=== PATIENT | female | born 1995 | race Caucasian/White ===

== ENCOUNTER → 2019-04-07 14:44 | Outpatient (CLI) | payer MEDICAID, SELFPAY ==
[2019-04-07 17:20] LABS: Hematocrit 34.8 % (37-47); Hemoglobin 11.8 g/dL (12.0-15.0); Mean Corp Hgb Conc 33.9 g/dL (32-36); Mean Corpuscular Hgb 32.5 pg (27.0-32.0); Mean Corpuscular Volume 95.9 fL (81-99); Mean Platelet Vol. 9.4 fl (6.2-12.0); Platelet Count 291 K/mm3 (150-450); RBC Distribution Width CV 12.5 % (11.6-14.6); RBC Distribution Width SD 43.8 fl (35.1-43.9); Red Blood Count 3.63 M/mm3 (4.2-5.4); White Blood Count 8.4 K/mm3 (4.4-11.0)
[2019-04-07 17:25] LABS: Glucose Challenge Gest 1H 50g 112 mg/dL (70-140)
== END ==
PROVIDERS: Visit Provider Advanced Practice Midwife
DX: Z34.83 Encounter for supervision of other normal pregnancy, third trimester (principal)
CPT/HCPCS: 36415; 82950; 85027; 86900; 86901

== ENCOUNTER → 2019-05-26 | Outpatient (CLI) | payer MEDICAID, SELFPAY | END | disposition home or self-care (01) | LOC: LABSPEC 17:00 | PROVIDERS: Visit Provider Obstetrics & Gynecology | DX: Z36.85 Encounter for antenatal screening for Streptococcus B (principal) | CPT/HCPCS: 87081 ==

== ENCOUNTER 2019-05-30 23:53 | Outpatient (CLI) | payer MEDICAID, SELFPAY ==
[2019-05-31 00:21] VITALS: BP 133/85; PULSE 88; TEMP 98.1; O2SAT 97
[2019-05-31 00:22] VITALS: TEMP 98.1; O2SAT 97
[2019-05-31 00:30] VITALS: BMI 37.0
--- NOTE | 2019-05-31 08:44 | OB.TRI.NOTE ---
- Problem List (1) 37 weeks gestation of Status: Acute (2) Decreased movement Status: Acute Qualifiers: Fetus number: single or unspecified fetus Trimester: third trimester Qualified Code(s): O36.8130 - Decreased movements, third trimester, not applicable or unspecified History of Present Illness Date of Service: 05/30/19 Was patient seen by the physician?: No Reason For Visit: DFM Date of Service: 05/30/19 Final LAURENCE: 06/20/19 Final LAURENCE Source: US <20 weeks Gestational age: 37 Weeks and 1 Days History of Present Illness: Reports decreased FM today and dizziness. Allergies No Known Allergies Allergy (Verified 05/31/19 00:30) Review of Systems Constitutional: Denies: Chills, Fever, Weight Change HEENT: Denies: Head Aches, Sinus Congestion, Sinus Drainage Cardiovascular: Denies: Chest Pain, Palpitations Respiratory: Denies: Cough, Shortness of breath at rest, Sputum production Gastrointestinal: Denies: Abdominal Pain, Nausea, Vomiting Genitourinary: Denies: Dysuria Musculoskeletal: Denies: Joint Pain, Joint Tenderness Skin: Denies: Rash, Wounds Neurological: Denies: Numbness, Tingling, Focal weakness Psychiatric: Denies: Anxiety, Depression, Homicidal Ideations, Suicidal Ideations Hematologic/ Lymphatic: Denies: Easy Bruising, Easy Bleeding Physical Exam Vitals: VSS General: Alert, Oriented x3, No apparent distress HEENT: Atraumatic, Normocephalic. Negative for: Thyromegaly, Lymphadenopathy Cardiovascular: Regular rate, Regular Rhythm Lungs: Clear to auscultation Abdomen: Bowel Sounds Present, Gravid Neurological: Deep Tendon Reflexes 2+/4 and Symmetrical, Neuro grossly intact RETAIL PROJECT MERCHANDISER: Normal external genitalia. Negative for: Vulvar lesions NST - FHR Rate Baby A Baseline: 130 Variability:: Moderate Accelerations:: 15 x 15 Decelerations:: None NST Reactive:: Yes FHR Category:: Category I Uterine Activity:: irritability Impression/Plan A: at 37 weeks gestation with decreased FM and dizziness at home Reports no longer dizzy and good movement with rest and hydration NST Category 1 with FHR baseline 130, +accels, -decels, moderate variability P: Discharge home. To do BID FM counts at home and call if decreased Educated on importance of hydration and rest To call the office or triage call with decreased movement or increased dizziness
[2019-05-31 11:54] VITALS: BP 122/69; PULSE 106
== END 2019-05-31 00:50 | disposition home or self-care (01) ==
LOC: WPOUT 05-31 → OBT 05-31
PROVIDERS: Visit Provider Obstetrics & Gynecology
DX: O36.8130 Decreased fetal movements, third trimester, not applicable or unspecified (principal); Z3A.37 37 weeks gestation of pregnancy
CPT/HCPCS: 59025; 59050; 99218; G0378

== ENCOUNTER 2019-06-06 07:45 | Inpatient (IN) | payer MEDICAID, SELFPAY ==
[2019-06-06] VITALS (34 sets, daily range): BP systolic 110–192; BP diastolic 53–126; PULSE 8–130; RESP 16–18; TEMP 36.2–37.2; O2SAT 83–100; BMI 38.0
[2019-06-06] MEDS: Lactated Ringers 1,000 ML 50 ML IV (07:55)
[2019-06-06] MEDS: Lactated Ringers 500 ML 999 ML IV (08:00)
--- NOTE | 2019-06-06 08:00 | HP.PCM_ITS ---
History and Physical Date of Admission: 06/06/19 ACOG ANTEPARTUM RECORD - HISTORY AND PHYSICAL (06/06/2019) Name: RIANA NGUYỄN History of This : This is a 24-year-old 2 para 1 who presents to labor and delivery in active labor. 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 She also has a bipolar disorder and takes Prozac. OB Physician: LIUDMILA 's Physician: MIGDALIA VASCULAR PHYSICIAN ...................................................................... : 1995 Age: 24 Address: [address] [place] [address] Phone: H) [phone] Insurance Carrier: [email or web address] CLAIM[facility] DEPT [id number] Emergency Contact: JULIANA YI [phone] ...................................................................... Final LAURENCE: 06/20/19 By Ultrasound: 22 weeks, [place] PARITY: (G-Total Pregnancies P-Fullterm,Premature,Induced AB,Spont AB, Ectopics, Multiple,Living) LAURENCE CONFIRMATION: By LMP: 09/13/18 Final LAURENCE: 06/20/19 OB PROBLEM LIST: Bipolar disroder, takes Prozac, had been on mood stablizer. PHQ-9 = 6 Born with Pyloric Stenosis, Pylorectomy as an infant CF testing declined Lives at least 30 minutes from [place] Marginal previa resolved. New FOB (he has no other children) No FOB involvment, she knows none of his family medical hx Office class encouraged Pt has no recall of Quad Screen being drawn, [facility]Y Culp records show is was drawn on 01/07/19; no results noted. ALLERGIES: No Known Drug Allergies MEDICATIONS: + DHA 28 mg iron- 975 mcg-200 mg combo pack PO QD Prozac 20 mg capsule PO QD SOCIAL HISTORY: Smoking - used to smoke but quit Alcohol Use - denies drinking Diet - HIgh fast food right now Lifestyle - moderate stress lifestyle and single Exercise - minimal Employer - [employer] Job Description - Machine [employer] Illicit Drug Use - denies use of street drugs Sexual Activity - Not currently sexually active Residence - rents an apartment Place of - [place], [place] Hours Worked - 35 HRS Children Name(s) - Radha PRIOR DELIVERY HISTORY _ DEL DATE GEST LAB WT LB WT OZ TYPE ANES LABOR TX 19 Mar 13 40 18 7 12 Vag Epidural No ANTEPARTUM FLOW CHART VISIT GE RTC FU F F HI U U DATE WK MD WKS HT PN HR M SS BP ED WT HI GL D EF ST __ ____ ___ __ __ ___ __ __ __ ___ __ __ __ ___ __ 04 May 37 CH 1 37 V + + 120/78 sl 243 1+ 50 -3 May 36 CH 1 36 V + + 130/72 sl 243 tr - 1+ 50 -3 May 35 CH 1 36 V + ++ 130/70 0 244 tr ne 06 May 33 CH 2 34 V + ++ 122/62 0 242 ne ne Apr 30 KW 2 31 on + 104/74 sl 240 08 Apr 28 2 29 + + 120/72 0 238 - - ANTEPARTUM NOTE(S): Jun 02 2019: see note May 26 2019: still having diarrhea. GBS and Larc today. May 19 2019: May 06 2019: christian mayers otherwise good Apr 22 2019: nausea on and off. Apr 07 2019: NOB transfer. COMPREHENSIVE ANTEPARTUM NOTE(S): Jun 02 2019: H taken to OB. tkg Jun 02 2019: Riana is being seen for PNV. Pt is feeling well. She is anxious due to dec fm the other night and came into [facility] L and D. She states she also was seeing spots and was feeling lightheaded. AM Jun 02 2019: FM+. FHR. Anxious. SVE today /-3. Understands to increase rest and fluids for dizziness. If decreased FM to rest on left side, ice water, count 4 movements in 1 hour or 10 in 2. To return in 1 week. If decreaesed FM to call during the office for NST or go to WP. To return in 1 week and will schedule elective IOL after 39 wks - CH May 30 2019: GBS negative - CH May 26 2019: (m,m*) Here today for routine PNV. +FM. FHR 148. GBS swab collected today, will review at next visit. Wishes to have SVE today 1.5/-3. Is thinking about IOL at 39 weeks for epidural and distance from hospital. FOB is not involved and still plans to have cousin and possible sister with her for labor support and epidural planned. Will return in 1 week and membrane sweeping after 38 weeks discussed. To call with decreased FM, ROM, bleeding, or regular UC q7-10 minutes apart since distance from hosp. - May 19 2019: (m,m*) Reports +FM. FHR. Will start weekly visits and educated on GBS swab and collection at next visit. May also start SVE next visit. To pre-register today. Christian mayers, but nothing regular. Will go away with rest and hydration. Working a lot, but plans to work up until due date. Reviewed to call with regular UC, decreased FM, bleeding or ROM. To return in 1 week. - May 06 2019: (m,m*) Routine PNV. Reports +FM. FHR 130. Feeling well. Discussed if decreased FM to lay down on left side and drink ice water. To pay attention to movements. Wanting 4 in 1 hour or 10 in 2 hours. States she hasn't ever been to [facility] and wanted to know options for labor. Wants an epidural radha ntually, but wants to use water for pain management. Discussed calling over to get a tour scheduled and that all rooms have showers in them with only two rooms having tubs. Labor tubs, but may not deliver in them and they're generally given to women who are going more natural unless both are available. Had to push on her back with her 5 year old son and feels traumatized from the experience. Wants to know about different positions. Discussed side lying with peanut ball use and hands and knees are helpful even with epidural in place. Feels a lot better and reassured. Reports hx of anixety and Fluoxetine is helping, but not controlling it. She wants to have full control and with having a baby there is a loss of the control she desires. Reassured that she will be the decision maker and we will support her with all her choices. To return in 2 weeks for routine PNV. 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; lots of round ligament pain, support belt helps at work; difficulty sleeping rt this discomfort, sleep hygeine measures discussed, also recommended warm bath/shower, Tylenol, hot water bottle, Unisom; reports cramping and diarrhea once weekly for past 3 weeks, doesn't drink a lot of water; recommended increased fluids, fiber supplement, increased dietary fiber, may use Immodium x 1 dose if especially problematic; will continue to follow and get GI or PCP consult if needed; concerned re: when to start vag exams, she did not get to hospital in time for epidural with first , an delivered quickly, found this tramautic; discussed option for IOL at 39 weeks and calling when UCs 10 minutes apart otherwise; reports active FM; denies UCs, VB, LOF; US today shows PHOEBE low normal, marginal previa resolved; discussed warning signs, s/s PTL; RTO 2 weeks for PNV w/CH- KVW Apr 08 2019: O positive Cultures negative Apr 07 2019: Riana is here for her NOB transfer visit at 29 w 3 d, she is a with an LAURENCE of 06/20/2019. She states early care at [facility] in [place], [place], then 3 visits with [facility]. Triage phoned [facility] for labs/records. Office practice patterns discussed, and educational materials provided. Riana has a 5 year old son at home, who was born by at [facility]. Past history updated. Delivery at [facility] is planned, with an epidural, and she wants to breastfeed. She states that she nursed her son for one week, then started formula. Discussed and encouraged office class, she states that she may take this class. Also given information about registering for [facility] group tour; she is very interested in a tour. Riana resides with her son in [place], having recently moved form the [facility]. She states that there is a new FOB for current , but he does not know about the , and will not be involved. She shares that her son's FOB is not involved either. Riana states that she receives good family support form her dad and step mother. As she did not have 1 hr GTT or other 28 week labs drawn, will have 1 hr GTT, CBC, and Type + Screen today, and she is in full agreement with this. Emergencies/danger signs to report, round ligament pain, how to contact the office during and after hours, reporting a suspected UTI, and common OTC medications approved/not approved for use during reviewed. She takes a prescribed vitamin and tolerates this well. She repots first trimester N/V, and that over the last few days she has been vomiting more; states I think I have some kind of virus. Encouraged small frequent, balanced, and for now bland meals with protein included throughout the day and adequate water hydration of at least one gallon per 24 hours. Riana reports that she quit smoking in early 2018, and denies use of drugs or ETOH. Genetic Screening form completed, she had Pyloric Stenosis at and had a P ylorectomy, and she has no knowledge FOB's family history, she states that she knows that he has no other children; she takes Prozac for Depressive Bipolar Disorder. Her past records show that she had a Quad Screen drawn on 01/07/19, no results noted. Riana states that she does not recall Quad Screen. Too late for MSAFP, and CF testing declined; consent signed as such. PHQ-9 = 6 today; Riana states that she sees a counselor and this helps, along with medication. She reports that she had been taking mood stabilizers for her Bipolar disorder, but has not taken these in some time. She states that she was treated for Chlamydia and bacterial vaginosis prior to . exercise recommendations, lifting restrictions, and Kegel exercises reviewed. Water and dietary needs reinforced, including caloric needs, recommended weight gain, limiting empty calories, and limiting caffeien to one cup a day. Printed guide for food safety during provided with review. Riana states that she understands all information provided during 90 minute NOB visit, and has no questions following same. AW Apr 07 2019: NOB, first PNV with this practice; records available for review; possible marginal placenta per US w/previous practrice will repeat US at next PNV: desires CNM care; No partner involvement, FOB unaware of per pt decision r/t his alleged drug abuse; pt lives alone, but has good family support from nearby family and will be accompanied in labor by a friend; gtt, T and cbc dsrawn today; fPQH-9 score of 6 r/t previously diagnosed bipolar disorder with mostly depression s/s; pt denies thoughs of hurting self and others and feels is coping wel on current dose of Prozac; feeling generally well; reports active FM; denies UCs, VB, LOF; discussed warning signs, s/s Labor; RTO 1 week for PNV - KVW REVIEW OF SYSTEMS: GENERAL - Denies fever, or chills SKIN - Denies rash, new skin lesions, or change in moles EYES - Denies blurred vision, or change in visual acuity EARS - Denies ear pain, or difficulty hearing NOSE - Denies nasal congestion, discharge, or bleeding MOUTH - Denies sore throat, or difficulty swallowing NECK - Denies pain or swelling RESPIRATORY - Denies shortness of breath, cough, wheezing CARDIOVASCULAR - Denies palpitations, chest pain, orthopnea, PND, peripheral edema, syncope or claudication GASTROINTESTINAL - Denies nausea, vomiting, diarrhea, constipation, Denies abdominal pain, melena and or bright red blood GENITOURINARY - Denies dysuria, frequency of urination, urgency, or hesitancy MUSCULOSKELETAL - Denies joint or muscle pain, or back pain NEUROLOGICAL - Denies localized numbness, weakness, or tingling PSYCHIATRIC - Denies depression, anxiety, substance abuse or suicide attempts ENDOCRINE - Denies heat or cold intolerance, weight loss or gain, increasing thirst HEMATO-IMMUNOLOGIC - Denies easy bruising, bleeding, oral ulcerations or recurrent infections GENETICS SCREENING: Age 35+ years: No Thalassemia: No Neural Tube Defect: No Down Syndrome: No PATRIC-SACHS: No Sickle Cell Disease: No Hemophilia: No Musc. Dystrophy: No Cystic Fibrosis: No-declines screening [place] Chorea: No Mental Retardation: No Fragile X: No Other genetic: No Other defects: No SABs/still births: No Drugs since LMP: No INFECTION HISTORY: High risk AIDS: No High risk Hepatitis: No Exposed to TB: No Exposed to Herpes: No Rash/viral illness since LMP: No History of STD: No Comments: Bacterial vaginosis, chlamydia MENSTRUAL HISTORY: *Menses Amount/Duration: 5 daysMenses Regularity: IrregularFrequency: variableBCP's at Conception: NoMenarche (Age Onset): 13* PAST SUMMARY: PARITY: 1. Total Pregnancies............ 2 2. Full Term Pregnancies........ 1 3. Premature.................... 0 4. Abortions - Induced.......... 0 5. Abortions - Spontaneous...... 0 6. Ectopics..................... 0 7. Multiple Births.............. 0 8. Living Children.............. 1 PAST #1: Date of :.................. 03[birth year]18[birth year] Gestation Weeks:................ 40 Length of labor(hours):......... 18 Sex:............................ M Weight-lbs:............... 7 Weight-oz:................ 12 Type of Delivery:............... Vag Type of Anesthesia:............. Epidural Place of Delivery:.............. [place] Treatment of Labor?:.... No Comment: PHYSICAL EXAMINATION General Appearence: 24 yo female in no acute distress Vital Signs: AF, VSS Heart: RRR without rubs or gallops Lungs: CTA x 2 Breasts: deferred Abdomen: gravid Pelvis: Cervix: 6 cm / 90% Presentation: cephalic Station: -2 Fetus: Size: AGA Movement: present Heart: present Labs for : RIANA NGUYỄN since 09/23/2018 ORDER DATEIN DESCRIPTION VALUE UNITS RANGE A+ COMMENT CULTURE, GROUP B STREPTOCOCCUS 05/26/19 NOTE Original Ordering Provider: SIMRAN Cruz Comments: VAGINAL/RECTAL ZO Culture Group B Beta Streptococcus is not isolated. Reviewed by LIUDMILA ABO RH BLOOD TYPE, PATIENT 04/07/19 [facility]~[address] [place], [address]~ BLOOD TYPE GEL O POSITIVE N Reviewed by LIUDMILA GLUCOSE CHALLENGE GEST 1H 50G 04/07/19 NOTE Original Ordering Provider: SIMRAN Schmidt GLU GEST 50G 1H 112 mg/dL 70-140 Reviewed by LIUDMILA CBC-COMPLETE BLOOD CNT NO DIFF 04/07/19 NOTE Original Ordering Provider: SIMRAN Schmidt WBC 8.4 K/mm3 4.4-11.0 RBC 3.63 M/mm3 4.2-5.4 L HGB 11.8 g/dL 12.0-15.0 L HCT 34.8 % 37-47 L MCV 95.9 fL 81-99 MCH 32.5 pg 27.0-32.0 H MCHC 33.9 g/dL 32-36 RDW CV 12.5 % 11.6-14.6 RDW SD 43.8 fl 35.1-43.9 PLT 291 K/mm3 150-450 MPV 9.4 fl 6.2-12.0 Reviewed by LIUDMILA Initial OB Labs 11/18/18 Blood Type O Rh Type POSITIVE Antibody Screen NEG Negative Hemoglobin Initial OB 12 Hematocrit Initial OB 34.4 w PLT 292 Rubella IMMUNE Immune VDRL NON-REACTIVE Non Reactive HBsAg NEGATIVE Negative HIV Test NEG Negative Urine Protein NEG Negative Urine Glucose NEG Negative Reviewed by ALBINA GC-Chlamydia 11/18/18 Chlamydia NEG Negative GC NEG No Growth Reviewed by ALBINA PAP Smear 11/18/18 PAP Test NEG Normal Reviewed by ALBINA Impression /Plan: 38+ week intrauterine in active labor with rupture of membranes. Preparations in progress for delivery.
[2019-06-06 08:12] LABS: Absolute Lymphocyte Count 2.92 X10^3/uL (0.83-4.51); Absolute Neutrophil Count 6.6 X10^3/uL (2.0-7.7); Basophil# 0.02 X10^3/uL; Basophil% 0.2 % (0-1); Eosinophil# 0.08 X10^3/uL; Eosinophils% 0.8 % (0-5); Hematocrit 34.6 % (37-47); Hemoglobin 11.9 g/dL (12.0-15.0); Lymphocyte # 2.92 X10^3/ul (4.0); Lymphocyte % 27.9 % (19-41); Mean Corp Hgb Conc 34.4 g/dL (32-36); Mean Corpuscular Hgb 32.6 pg (27.0-32.0); Mean Corpuscular Volume 94.8 fL (81-99); Mean Platelet Vol. 9.6 fl (6.2-12.0); Monocyte% 7.7 % (0-10); NRBC Flagged by Analyzer 0 % (0-5); Neutrophil # 6.58 X10^3/uL (2.7-7.7); Neutrophil % 62.9 % (47-70); Platelet Count 227 K/mm3 (150-450); RBC Distribution Width CV 12.6 % (11.6-14.6); RBC Distribution Width SD 43.8 fl (35.1-43.9); Red Blood Count 3.65 M/mm3 (4.2-5.4); White Blood Count 10.5 K/mm3 (4.4-11.0)
[2019-06-06] MEDS: fentaNYL-bupivacaine (epidural) 100 ML BAG EPIDURAL (09:30)
[2019-06-06] MEDS: Oxytocin 30 units/NS 500 ml 30 UNITS/500 ML IV.SOLN 334 UNITS IV (09:48)
--- NOTE | 2019-06-06 09:56 | PCM.OPRPT ---
Vaginal Delivery Maternal Presentation: Active Labor, Spontaneous Rupture of Membranes Amniotic Membrane Rupture Type: Spontaneous at home Amniotic Fluid Description: Clear Final LAURENCE: 06/20/19 Final LAURENCE Source: US <20 weeks Gestational age: 38 Weeks and 0 Days doctor who attended delivery (if requested by OB): Natalie Antony Date of Procedure: 06/06/19 Pre-Operative Diagnosis: IUP Post-Operative Diagnosis: IUP Surgery/ Procedure Performed: Spontaneous Vaginal Delivery Anesthesiologist: Po Mckeon Type of Anesthesia: Epidural Description of Procedure: Spontaneous vaginal delivery of a viable male with Apgars of 7/8 from an occiput anterior presentation with clear amniotic fluid and normal three-vessel placenta. No episiotomy. First-degree midline laceration repaired with 3-0 Rapide suture under epidural. Sponges okay. Delivery physician: Chilango Noel MD. Presentation: Vertex Placental Delivery Description: Spontaneous Placenta Disposition: [facility] Cord Vessel Description: 3 Vessels Cord Entanglement: None Estimated Blood Loss: 250 cc A gender: Male (1 minute): 7 (5 minute): 8 Episiotomy Description: None Laceration: Midline, 1st degree Medications given after delivery: IV Pitocin Complications: None
[2019-06-06] MEDS: FLUoxetine 20 MG Capsule 40 MG PO (12:04)
[2019-06-06] MEDS: Ibuprofen 600 MG Tablet PO ×2 (12:06→18:32)
[2019-06-07] MEDS: Senna/Docusate Sodium 1 Tablet PO (01:22)
[2019-06-07 04:13] VITALS: BP 121/69; PULSE 87; RESP 16; TEMP 36.6
[2019-06-07] MEDS: Acetaminophen 500 MG Tablet 1000 MG PO ×2 (05:00→19:54)
[2019-06-07 08:00] VITALS: BP 125/59; PULSE 81; RESP 14; TEMP 36.4
[2019-06-07 08:18] VITALS: BP 125/59
[2019-06-07] MEDS: FLUoxetine 20 MG Capsule 40 MG PO (08:25)
--- NOTE | 2019-06-07 10:04 | PCM.PN.OB ---
Subjective: Patient without complaints. Still working on breast-feeding. Minimal vaginal bleeding. Considering going home later today. - Physical Exam Vitals/I&O's: Vital Signs Temp Pulse Resp BP Pulse Ox 97.6 F L 81 14 125/59 H 97 06/07/19 08:00 06/07/19 08:00 06/07/19 08:00 06/07/19 08:18 06/06/19 14:49 Oxygen Delivery Method Room Air Weight: 243 lb Body Mass Index (BMI) 38.0 Intake and Output for Last 24 Hours 06/05/19 06/06/19 06/07/19 22:59 23:59 23:59 Intake Total Output Total Balance Laboratory Results 06/06/19 07:55: Blood Type O POSITIVE, Antibody Screen NEGATIVE Current Medications Acetaminophen (Tylenol) 1,000 mg PO Q8H PRN PRN PRN Reason: Pain Score 1-3/10 Last Admin: 06/07/19 05:00 Dose: 1,000 mg Documented by: Bisacodyl (Dulcolax) 10 mg RECTAL UD PRN PRN Reason: If no BM Dibucaine (Dibucaine) 1 applic TOPICAL TID PRN PRN; Protocol PRN Reason: Discomfort Fluoxetine HCl (Prozac) 40 mg PO DAILY EFRAIN Last Admin: 06/07/19 08:25 Dose: 40 mg Documented by: Hydrocortisone (Hytone) 1 applic TOPICAL TID PRN PRN; Protocol PRN Reason: Discomfort Ibuprofen (Motrin) 600 mg PO Q6H PRN PRN PRN Reason: Pain Score 1-3/10 Last Admin: 06/06/19 18:32 Dose: 600 mg Documented by: Methylergonovine Maleate (Methergine) 0.2 mg IM X1 PRN PRN Reason: Excess bleeding/uterine atony Ondansetron HCl (Zofran) 4 mg IV Q4H PRN PRN PRN Reason: Nausea Oxycodone HCl (Oxyir) 5 - 10 mg PO Q4H PRN PRN PRN Reason: Pain Score 4-10/10 Senna/Docusate Sodium (Senokot-S, Keesha-Colace) 1 - 2 tablet PO DAILY PRN PRN PRN Reason: Constipation Last Admin: 06/07/19 01:22 Dose: 2 tablet Documented by: Simethicone (Mylicon) 80 mg PO PCHS PRN PRN Reason: Indigestion/Stomach pain Sodium Chloride () 5 - 15 ml IV UD PRN PRN Reason: SALINE FLUSH Zolpidem Tartrate (Ambien (Generic)) 5 mg PO QHS PRN PRN PRN Reason: Insomnia Medical Necessity - Tobacco Use Smoking Status: Former smoker Assessment/Plan All Active Problems 37 weeks gestation of (Acute) Decreased movement (Acute) Doing well day #1 status post routine spontaneous vaginal delivery. Discharge instructions given.
--- NOTE | 2019-06-07 10:05 | DCINST_ITS ---
May resume sexual activity in: 4-6 weeks Additional Activity Instructions:: Nothing in the vagina for 4-6 weeks. You may return to work/school in 6 weeks. Call your doctor if you observe: Inability to urinate, Inability to have a bowel movement, Using more than one pad per hour Additional Instructions: If you experience any of the following, contact your healthcare provider. * Bleeding that soaks a pad every hour for 2 hours * Fever 100.4 or higher * Unrelieved incision or abdominal pain * Swelling, redness, discharge or bleeding from your incision or episiotomy site * Your incision begins to separate * Problems urinating (including inability to urinate or burning while urinating). * Visual changes * Severe headache * Flu-like symptoms * Pain or redness in one of both of your breasts * Pain, warmth, tenderness or swelling in your legs, especially the calf area * Frequent nausea and vomiting * Symptoms of depression or anxiety If you experience any of the following, call 911 or go to the nearest Emergency Room. * Chest pain * Problems breathing * Seizure activity * Partial or complete paralysis of a body part, slurred speech, weakness or drooping of the face, or a sudden inability to walk or hold your balance Allergies/Adverse Reactions: Allergies No Known Allergies Allergy (Verified 06/06/19 07:57) Medications to take at Discharge Fluoxetine HCl 40 mg PO DAILY 05/31/19 Vit,Calc76/Iron/Folic [Pnv 29-1 Tablet] 1 ea PO DAILY 05/31/19 Please Follow Up With: Shanika Cruz, [facility] - [phone] When: Call to make an appointment with your provider in 2 and 6 weeks. Test Results: Test results from this visit will be discussed in further detail at your follow- up appointment, if applicable.
--- NOTE | 2019-06-07 10:05 | PCM.DCVAG ---
May resume sexual activity in: 4-6 weeks Additional Activity Instructions:: Nothing in the vagina for 4-6 weeks. You may return to work/school in 6 weeks. Call your doctor if you observe: Inability to urinate, Inability to have a bowel movement, Using more than one pad per hour Additional Instructions: If you experience any of the following, contact your healthcare provider. Bleeding that soaks a pad every hour for 2 hours Fever 100.4 or higher Unrelieved incision or abdominal pain Swelling, redness, discharge or bleeding from your incision or episiotomy site Your incision begins to separate Problems urinating (including inability to urinate or burning while urinating). Visual changes Severe headache Flu-like symptoms Pain or redness in one of both of your breasts Pain, warmth, tenderness or swelling in your legs, especially the calf area Frequent nausea and vomiting Symptoms of depression or anxiety If you experience any of the following, call 911 or go to the nearest Emergency Room. Chest pain Problems breathing Seizure activity Partial or complete paralysis of a body part, slurred speech, weakness or drooping of the face, or a sudden inability to walk or hold your balance Allergies/Adverse Reactions: Allergies No Known Allergies Allergy (Verified 06/06/19 07:57) Medications to take at Discharge Fluoxetine HCl 40 mg PO DAILY 05/31/19 Vit,Calc76/Iron/Folic [Pnv 29-1 Tablet] 1 ea PO DAILY 05/31/19 Please Follow Up With: Shanika Cruz, [facility] - [phone] When: Call to make an appointment with your provider in 2 and 6 weeks. Test Results: Test results from this visit will be discussed in further detail at your follow-up appointment, if applicable.
[2019-06-07] MEDS: Sodium Chloride 0.65% 1 SPRAY SPRAY.BTL NASAL (14:22)
[2019-06-07 14:45] VITALS: BP 115/75; PULSE 96; RESP 15; TEMP 36.6
[2019-06-07 19:59] VITALS: BP 115/74; PULSE 86; RESP 16; TEMP 36.8
== END 2019-06-07 23:30 | disposition home or self-care (01) | DRG 560 ==
PROVIDERS: Admitting Provider Obstetrics & Gynecology; Visit Provider Obstetrics & Gynecology
DX: O99.344 Other mental disorders complicating childbirth (principal); F31.9 Bipolar disorder, unspecified; Z87.891 Personal history of nicotine dependence; Z3A.38 38 weeks gestation of pregnancy; O70.0 First degree perineal laceration during delivery; Z37.0 Single live birth
CPT/HCPCS: 59050; 85025; 86850; 86900; 86901; 99218; J7120; G0378

== ENCOUNTER 2021-01-05 09:53 | Emergency (ER) | payer MEDICAID, SELFPAY ==
[2021-01-05 09:57] VITALS: BP 125/83; PULSE 105; RESP 17; TEMP 36.2; O2SAT 96; BMI 40.6
[2021-01-05 10:01] VITALS: BP 125/83; PULSE 109; RESP 17; TEMP 36.2; O2SAT 95
[2021-01-05 10:23] VITALS: O2SAT 96
--- NOTE | 2021-01-05 10:43 | EKG12_ITS ---
Test Reason : SOB Blood Pressure : / mmHG Vent. Rate : 085 BPM Atrial Rate : 085 BPM P-R Int : 180 ms QRS Dur : 092 ms QT Int : 354 ms P-R-T Axes : 041 086 003 degrees QTc Int : 421 ms Normal sinus rhythm Normal ECG Confirmed by KAMRYN DESHPANDE, TEGAN ([id number]), television news video editor DIANA RICHARD ([id number]) on 01/08/2021 12:42:21 PM Referred By: FADUMO Confirmed By:MARIEL HARRY MD
--- NOTE | 2021-01-05 10:44 | RAD_ITS ---
STUDY: X-RAY CHEST REASON FOR EXAM: Female, 25 years old. sob TECHNIQUE: AP COMPARISON: None. FINDINGS: The lungs are clear and expanded. There is no demonstrated pleural abnormality. Normal size heart. Normal mediastinum and melodie. Normal visualized pulmonary arteries. Normal visualized aortic arch and descending thoracic aorta. Normal visualized thoracic spine. Normal visualized ribs, clavicles, and shoulders. There is no demonstrated abnormality of the visualized soft tissue structures of the upper abdomen. RAD/Chest 1 View (Portable) IMPRESSION: Nonacute portable x-ray examination of the chest. Electronically Signed: Hubert Mccord MD (Brooks) at 11:10 EDT , Service support ,
[2021-01-05 10:51] LABS: Bacteria 0 SEEN /hpf (None Seen); Mucous, Urine 0 SEEN /hpf (<or=2+); Red Blood Cells-Urine 0 SEEN /hpf (0-5); White Blood Cells 0 SEEN /hpf (0-5)
[2021-01-05 10:54] LABS: Color, Urine Yellow (Yellow); Glucose, Dipstick Normal (Normal); Ketone-Dipstick Negative (Negative); Leukocyte Esterase-Dipstick Negative /ul (Negative); Nitrite-Dipstick Negative (Negative); Occult Blood-Urine Negative /ul (Negative); Protein-Dipstick Negative (Negative); Urine Bilirubin Dipstick Negative (Negative); Urine Clarity Sl. Cloudy (Clear); Urine Urobilinogen Normal (Normal); Urine pH 6.5 (5.0 - 8.0)
[2021-01-05 10:59] LABS: Squamous Epithelial Cells - UA 0-5 SEEN /hpf (5-10)
[2021-01-05 11:13] LABS: Absolute Lymphocyte Count 2.13 X10^3/uL (0.83-4.51); Absolute Neutrophil Count 5.4 X10^3/uL (2.0-7.7); Basophil# 0.03 X10^3/uL; Basophil% 0.4 % (0-1); Eosinophil# 0.23 X10^3/uL; Eosinophils% 2.8 % (0-5); Hematocrit 31.1 % (37-47); Hemoglobin 10.8 g/dL (12.0-15.0); Lymphocyte # 2.13 X10^3/ul (0.83-4.51); Lymphocyte % 25.8 % (19-41); Mean Corp Hgb Conc 34.7 g/dL (32-36); Mean Corpuscular Hgb 32.1 pg (27.0-32.0); Mean Corpuscular Volume 92.6 fL (81-99); Mean Platelet Vol. 8.8 fl (6.2-12.0); Monocyte# 0.42 X10^3/uL; Monocyte% 5.1 % (0-10); NRBC Flagged by Analyzer 0 % (0-5); Neutrophil # 5.41 X10^3/uL (2.7-7.7); Neutrophil % 65.7 % (47-70); Platelet Count 234 K/mm3 (150-450); RBC Distribution Width CV 12.9 % (11.6-14.6); Red Blood Count 3.36 M/mm3 (4.2-5.4); White Blood Count 8.2 K/mm3 (4.4-11.0)
--- NOTE | 2021-01-05 11:13 | ED.VIS.DYS ---
HPI History of Present Illness Chief Complaint: Shortness of Breath Informant: patient Narrative Narrative: Patient is a 25-year-old female, G3, P2 currently 24 weeks presenting with shortness of breath and chest discomfort. Patient states she is been feeling unwell for the past few days. She states she is tired and her legs hurt. She states she has been short of breath and has had a hard time sleeping. She is waking up gasping for air and this morning woke up with her heart racing. She not exactly sure why she cannot sleep. She states she is mildly congested. She had a mild cough productive of clear sputum. She had associated headache. No reported fever. No sick contacts. Has not had a Covid vaccine. Patient also notes she feels shaky has been more thirsty lately. She denies any abdominal pain. Still feeling baby move. She did have some mild tightness in her lower abdomen when driving here today. No leakage of fluids or vaginal bleeding reported. No new swelling of her legs. Patient states she feels very anxious and she is never felt like this in prior pregnancies. Denies any history of gestational diabetes or preeclampsia. Denies a history of DVT or PE. [facility] Medical History (Updated 01/05/21 @ 14:[address] Angelica Kuhn, ) Hepatitis C Home Medications vit,[id number] 1 ea PO DAILY 05/31/19 [History Last Taken 05/30/19 08:00 1] Allergy/AdvReac Type Severity Reaction Status Date / Time No Known Allergies Allergy Verified 01/05/21 09:54 Surgical History no surgical history Social History Smoking Status: Former smoker ROS ROS ED Constitutional Constitutional ED: Denies chills or fever(s) Eyes Eyes: Denies change in vision ENT ENT ED: Reports other Details: nasal congestion ; Denies ear pain, rhinorrhea or sore throat Cardiovascular Cardiovascular: Reports chest pain Respiratory/Chest Respiratory/Chest: Reports cough and sputum; Denies dyspnea Gastrointestinal Gastrointestinal: Denies abdominal pain, nausea or vomiting Genitourinary Genitourinary ED: Reports urinary frequency; Denies dysuria Musculoskeletal Musculoskeletal: Reports myalgias; Denies arthralgias Integumentary Denies rash Neurologic Neurologic: Reports headache(s); Denies weakness Psychiatric Psychiatric: Reports anxiety; Denies depression Endocrine Endocrinology: Reports polyuria EXAM Physical Exam Const Vital Signs: 01/05/21 09:57 01/05/21 10:01 01/05/21 10:23 Temperature 97.2 F L 97.2 F L Temperature Source Temporal Temporal Pulse Rate 105 H 109 H Respiratory Rate 17 17 Respiratory Effort Short of Breath Respiratory Depth Normal Respiratory Pattern Normal Blood Pressure 125/83 H 125/83 H Blood Pressure Mean 97 97 Pulse Ox 96 95 Oxygen Delivery Method Room Air Room Air Room Air 01/05/21 13:54 Temperature Temperature Source Pulse Rate Respiratory Rate 18 Respiratory Effort Respiratory Depth Respiratory Pattern Blood Pressure Blood Pressure Mean Pulse Ox Oxygen Delivery Method Room Air Positive well nourished, well developed and obese General Appearance ED: well developed Nutritional Appearance: obese HEENT Reports TM's clear and moist mucous membranes atraumatic Tympanic Membrane ED: Yes TM's clear Eyes PERRL and EOMs intact bilaterally Neck no lymphadenopathy, supple, no meningeal signs and no JVD Resp normal respiratory effort and clear to auscultation bilaterally Cardio regular rate, regular rhythm and no murmurs GI non-tender and non-distended GI Narrative: Gravid abdomen with fundus above the level of the umbilicus Auscultation: normoactive bowel sounds Palpation: soft Extremity normal to inspection General Extremety ED: Negative for edema General Extremity: Negative for edema Neuro oriented x3 and CN's II-XII intact bilaterally Sensorium / Orientation: alert Gait (Neuro): normal gait Motor Exam: strength 5/5 throughout Psych mental status grossly normal Mood & Affect: tearful MDM MDM MDM Narrative Medical decision making narrative: Patient is evaluated for palpitations, shortness of breath and cough. Patient is 24 weeks . heart tones obtained and are normal. Patient is very tearful but otherwise has a normal physical exam. She is a mild anemia with a hemoglobin of 10.8 but I suspect this is physiologic given her point in . Her only risk factor for PE is heart rate over 100 and . I otherwise do not suspect a PE and D-dimer obtained. This is less than 0.5 and I do not think a CTA is indicated. Urinalysis is normal. BMP and CMP largely unremarkable. Patient did tell nursing staff that she was diagnosed with hepatitis C which is why liver panel was added on. TSH is normal. While in the ER patient has heart rate between the 80s to low 100s with no arrhythmia. She continues to feel that her heart is racing and feel very anxious. She becomes very tearful at 1 point takes off all of her monitor leads. She states she is never felt this way but to review shows that she had previously been on Prozac and has a history of bipolar disorder. Patient know she is been very depressed throughout this . She is evaluated by case management and given a dose of IV Ativan as she is becoming acutely agitated. This does seem to help her symptoms. I do not feel that at this point her 1 dose would be harmful to the patient or her unborn child. Patient is evaluated by case management and does have appointment to see a counselor next week. She is given referral to the counseling center as well. I do not feel comfortable restarting the Prozac from the ER. Lab Data Attestation: I reviewed the patient's lab results. Labs: Laboratory Results - last 24 hr 01/05/21 01/05/21 01/05/21 10:43 11:07 11:07 WBC 8.2 RBC 3.36 L Hgb 10.8 L Hct 31.1 L MCV 92.6 MCH 32.1 H MCHC 34.7 RDW Std Deviation 43.0 RDW Coeff of Hodan 12.9 Plt Count 234 MPV 8.8 Immature Gran % (Auto) 0.200 Neut % (Auto) 65.7 Lymph % (Auto) 25.8 Pocahontas % (Auto) 5.1 Eos % (Auto) 2.8 Baso % (Auto) 0.4 Absolute Neuts (auto) 5.4 Absolute Lymphs (auto) 2.13 Nucleated RBC % 0 D-Dimer Quant (PE/DVT) 0.42 Sodium Potassium Chloride Carbon Dioxide Anion Gap BUN Creatinine Estim Creat Clear Calc Est GFR (MDRD) Af Amer Est GFR (MDRD) Non-Af BUN/Creatinine Ratio Glucose Calcium Total Bilirubin Direct Bilirubin AST ALT Alkaline Phosphatase Troponin I High Sens Total Protein Albumin Globulin TSH Urine Color Yellow Urine Clarity Sl. Cloudy Urine pH 6.5 Ur Specific Franklin 1.010 Urine Protein Negative Urine Glucose (UA) Normal Urine Ketones Negative Urine Occult Blood Negative Urine Nitrite Negative Urine Bilirubin Negative Urine Urobilinogen Normal Ur Leukocyte Esterase Negative Urine RBC 0 SEEN Urine WBC 0 SEEN Ur Squamous Epith Cells 0-5 SEEN Urine Bacteria 0 SEEN Urine Mucus 0 SEEN 01/05/21 01/05/21 11:07 11:07 WBC RBC Hgb Hct MCV MCH MCHC RDW Std Deviation RDW Coeff of Hodan Plt Count MPV Immature Gran % (Auto) Neut % (Auto) Lymph % (Auto) Pocahontas % (Auto) Eos % (Auto) Baso % (Auto) Absolute Neuts (auto) Absolute Lymphs (auto) Nucleated RBC % D-Dimer Quant (PE/DVT) Sodium 140 Potassium 3.7 Chloride 110 H Carbon Dioxide 24.0 Anion Gap 6 BUN 4 L Creatinine 0.31 L Estim Creat Clear Calc 267.43 Est GFR (MDRD) Af Amer 329 Est GFR (MDRD) Non-Af 272 BUN/Creatinine Ratio 12.9 Glucose 84 Calcium 8.7 Total Bilirubin 0.30 Direct Bilirubin 0.10 AST 25 ALT 45 Alkaline Phosphatase 60 Troponin I High Sens 4 Total Protein 6.7 Albumin 2.8 L Globulin 3.9 TSH 1.50 Urine Color Urine Clarity Urine pH Ur Specific Franklin Urine Protein Urine Glucose (UA) Urine Ketones Urine Occult Blood Urine Nitrite Urine Bilirubin Urine Urobilinogen Ur Leukocyte Esterase Urine RBC Urine WBC Ur Squamous Epith Cells Urine Bacteria Urine Mucus Radiography Chest X-Ray - ED: 1 View, Read by ED Physician, Read by Radiologist and No Acute Disease Diagnostic Testing: Clinical Impression(s) from Imaging Studies Chest X-Ray 01/05/21 10:44 IMPRESSION: Nonacute portable x-ray examination of the chest. Electronically Signed: Hubert Mccord MD (Brooks) at 11:10 EDT , Service support , Rhythm Strip Rhythm Strip: Sinus Rhythm Rate: 85 Ectopy: None EKG Initial EKG: Attestation: I personally reviewed and interpreted this EKG as follows: Interpretation: Sinus Rhythm Comments: Normal sinus rhythm at a rate of 85 Normal axis Normal intervals Normal ST segments Patient does have an S1Q3T3 Discharge Plan Triage Chief Complaint: Shortness of Breath ED Provider: Angelica Kuhn Dx/Rx/DC Orders Clinical Impression: Heart palpitations, Shortness of breath during , Anxiety with depression Instructions: ED Depression, ED Dyspnea, ED Palpitations Prescriptions: No Action vit,[id number] 1 EACH tablet 1 ea PO DAILY RF: 0 Primary Care Provider: Care Physician,No Primary Referrals: Counseling,Center [GROUP OF PHYSICIANS] - Ashely Lobato DO [STAFF PHYSICIAN] - Care Physician,No Primary [Primary Care Provider] - Disposition Disposition: Home, Self Care
[2021-01-05 11:26] LABS: D-Dimer Quantitative (DVT/PE) 0.42 FEU/ug/m (0.27-0.49)
[2021-01-05 11:37] LABS: Anion Gap 6 (5-15); BUN 4 mg/dL (7-18); BUN/Creat Ratio 12.9 RATIO (10-20); Calcium,Total 8.7 mg/dL (8.5-10.1); Chloride 110 mmol/L (98-107); Creatinine, Serum 0.31 mg/dL (0.55-1.02); EST Glomerular Filtration Rate 272 mL/min (>60); Est Glom Filt Rate - Afr Amer 329 mL/min (>60); Estimated Creatinine Clearance 267.43 ml/min; Glucose 84 mg/dL (74-106); Potassium 3.7 mmol/L (3.5-5.1); Sodium Level 140 mmol/L (136-145); Troponin-I HS 4 pg/mL (3.0-54.0)
[2021-01-05 12:13] LABS: AST(SGOT) 25 U/L (15-37); Alanine Aminotransfer ALT/SGPT 45 U/L (13-56); Albumin, Serum 2.8 g/dL (3.2-5.0); Alkaline Phosphatase 60 U/L (45-117); Globulin 3.9 g/dL (2.2-4.2); Protein, Total 6.7 g/dL (6.4-8.2)
[2021-01-05] MEDS: LORazepam 2 MG/ML Syringe 0.5 MG IV (13:41)
[2021-01-05 13:54] VITALS: RESP 18
[2021-01-05 14:56] VITALS: PULSE 96; RESP 16; O2SAT 97
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
== END 2021-01-05 14:58 | disposition home or self-care (01) ==
PROVIDERS: Emergency Provider Emergency Medicine
DX: O26.892 Other specified pregnancy related conditions, second trimester (principal); O99.342 Other mental disorders complicating pregnancy, second trimester; O99.212 Obesity complicating pregnancy, second trimester; E66.9 Obesity, unspecified; R00.2 Palpitations; R06.02 Shortness of breath; F41.8 Other specified anxiety disorders; Z3A.24 24 weeks gestation of pregnancy; Z87.891 Personal history of nicotine dependence
CPT/HCPCS: 71045; 80048; 80076; 81001; 84443; 84484; 85025; 85379; 87426; 93005; 96374; 99284; A4216

== ENCOUNTER 2021-01-10 05:35 | Emergency (ER) | payer MEDICAID, SELFPAY ==
[2021-01-10] VITALS (9 sets, daily range): BP systolic 107–142; BP diastolic 70–92; PULSE 103–139; RESP 16–24; TEMP 35.8; O2SAT 96–100; BMI 40.5
--- NOTE | 2021-01-10 06:08 | EKG12_ITS ---
Test Reason : CP Blood Pressure : / mmHG Vent. Rate : 096 BPM Atrial Rate : 096 BPM P-R Int : 166 ms QRS Dur : 094 ms QT Int : 340 ms P-R-T Axes : 050 090 -13 degrees QTc Int : 429 ms Normal sinus rhythm T wave abnormality, consider inferior ischemia Abnormal ECG Confirmed by TRISTAN DESHPANDE, KIERAN ([id number]), deputy editor in chief DIANA RICHARD ([id number]) on 01/16/2021 6:32:21 AM Referred By: KAYLA Confirmed By:KIERAN HUDSON MD
[2021-01-10] MEDS: Haloperidol Lactate 5 MG/ML Vial IV (06:16)
[2021-01-10 06:20] LABS: Absolute Lymphocyte Count 3.21 X10^3/uL (0.83-4.51); Absolute Neutrophil Count 6.4 X10^3/uL (2.0-7.7); Basophil# 0.03 X10^3/uL; Basophil% 0.3 % (0-1); Eosinophil# 0.23 X10^3/uL; Eosinophils% 2.2 % (0-5); Hematocrit 32.3 % (37-47); Hemoglobin 11.3 g/dL (12.0-15.0); Lymphocyte # 3.21 X10^3/ul (0.83-4.51); Lymphocyte % 30.7 % (19-41); Mean Corpuscular Hgb 32.1 pg (27.0-32.0); Mean Corpuscular Volume 91.8 fL (81-99); Mean Platelet Vol. 9.2 fl (6.2-12.0); Monocyte# 0.59 X10^3/uL; Monocyte% 5.6 % (0-10); NRBC Flagged by Analyzer 0 % (0-5); Neutrophil # 6.36 X10^3/uL (2.7-7.7); Neutrophil % 60.8 % (47-70); Platelet Count 270 K/mm3 (150-450); RBC Distribution Width CV 12.7 % (11.6-14.6); RBC Distribution Width SD 41.8 fl (35.1-43.9); Red Blood Count 3.52 M/mm3 (4.2-5.4); White Blood Count 10.5 K/mm3 (4.4-11.0)
--- NOTE | 2021-01-10 06:21 | ED.RN ---
PT REQUESTING TO SPEAK WITH THE SERVER SECURITY ADMINISTRATOR WHEN THEY COME IN FOR PSYCHIATRIC PLACEMENT. PT DENIES SI / HI. PT STATES I JUST KNOW I WON'T TAKE MY MEDICINE BECAUSE I'M SCARE OF TAKING MEDS. PT VERY TEARFUL WHEN TALKING WITH STAFF
--- NOTE | 2021-01-10 06:28 | ED.RN ---
PT PULLED OFF ALL OF THE WIRES, BP CUFF, AND PULSE OX. PT CAME OUT INTO THE HALLWAY YELLING. SOMEONE HELP ME. SOMETHING IS WRONG. I'M GOING TO . PT ASSISTED BACK INTO THE ROOM AND BACK INTO BED. PT PUT BACK ON THE SAP ADMINISTRATOR AND BP CHECKED. BP STABLE HR ELEVATED. PT CONTINUES TO YELL SOMETHING IS WRONG. I CAN'T LIVE LIKE THIS ANYMORE. WHY AREN'T YOU HELPING ME. PT INSTRUCTED TO CONCENTRATE ON SLOWING HER BREATHING. DR CASTORENA IN THE ROOM SPEAKING WITH THE PT. PT YELLING WHY DID YOU GIVE ME THAT MEDICATION DR CASTORENA EXPLAINED TO THE PT THAT SHE SAID THE MEDICATION SHE GOT LAST TIME DID NOT WORK, SO HE GAVE HER HALDOL THIS TIME. PT YELLING GIVE ME SOME WATER RIGHT NOW. WHY AREN'T YOU GETTING ME ANY WATER. DR CASTORENA BACK IN THE ROOM WITH A CUP OF WATER. PT STATES WHY AREN'T YOU HELPING ME.
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
--- NOTE | 2021-01-10 06:35 | ED.RN ---
PT CLOSES EYES AND APPEARS TO START TO FALL ASLEEP THEN OPENS EYES AND YELLS THIS ISN'T HELPING. PT C/O FEELING VERY UNCOMFORTABLE. THIS NURSE OFFERED TO HELP THE PT REPOSITION IN BED.
--- NOTE | 2021-01-10 06:42 | ED.RN ---
PT STATES THIS MEDICINE ISN'T GOING TO WORK. I'M TELLING YOU GUYS THAT RIGHT NOW
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
[2021-01-10 06:50] LABS: Anion Gap 8 (5-15); BUN 8 mg/dL (7-18); BUN/Creat Ratio 15.4 RATIO (10-20); Calcium,Total 8.9 mg/dL (8.5-10.1); Chloride 106 mmol/L (98-107); Creatinine, Serum 0.52 mg/dL (0.55-1.02); EST Glomerular Filtration Rate 151 mL/min (>60); Est Glom Filt Rate - Afr Amer 182 mL/min (>60); Estimated Creatinine Clearance 159.43 ml/min; Glucose 80 mg/dL (74-106); Potassium 3.5 mmol/L (3.5-5.1); Sodium Level 139 mmol/L (136-145); Thyroid Stim Hormone (TSH) 2.25 uIU/mL (0.358-3.74); Troponin-I HS 5 pg/mL (3.0-54.0)
--- NOTE | 2021-01-10 07:05 | ED.RN ---
THE PT YELLING FOR HELP. THIS NURSE IN THE ROOM, THE PT REQUESTING TO GET UP AND GO PEE. THIS NURSE ASSISTED PT TO THE SIDE OF THE BED. ONCE THE PT STOOD UP, HER KNEES BUCKLED. THE PT DID NOT FALL. SHE WAS ASSISTED BACK ONTO THE BED BY THIS NURSE. PT REQUESTING TO GET UP TO PEE. THIS NURSE INFORMED THE PT SHE WAS NOT PERMITTED TO GET UP. DR CASTORENA NOTIFIED OF WAS OCCURRED. ORDER OBTAINED FOR URINE SAMPLE. WHILE THIS NURSE WAS GETTING SUPPLIES, THE PT CALLED OUT AND ASKED TO GET UP. ANOTHER NURSE IN THE ROOM ATTEMPTING TO GET UP WHEN I WALKED BACK INTO THE ROOM. THE PT AGAIN INFORMED SHE CAN NOT GET UP BECAUSE OF THE LAST ATTEMPT TO STAND UP. PT PLACED ON A BED DUDLEY. URINE SAMPLE OBTAINED.
[2021-01-10 07:10] LABS: Mucous, Urine 0 SEEN /hpf (<or=2+); Red Blood Cells-Urine 0 SEEN /hpf (0-5)
[2021-01-10 07:12] LABS: Color, Urine Yellow (Yellow); Glucose, Dipstick Normal (Normal); Ketone-Dipstick 15 mg/dl (Negative); Leukocyte Esterase-Dipstick 500 /ul (Negative); Nitrite-Dipstick Negative (Negative); Occult Blood-Urine Negative /ul (Negative); Protein-Dipstick Negative (Negative); Specific Gravity, Urine 1.015 (1.002-1.030); Urine Bilirubin Dipstick Negative (Negative); Urine Clarity Clear (Clear); Urine Urobilinogen Normal (Normal); Urine pH 6.5 (5.0 - 8.0)
--- NOTE | 2021-01-10 07:21 | EDS_ITS ---
HPI <Dr. Alejandro Ventura DO - Last Filed: 01/10/21 07:31> History of Present Illness Chief Complaint: Chest Pain Narrative Narrative: Patient is a 25-year-old female who is approximately 25 weeks . She was seen on January 05 for the same complaint and a complete workup was performed that displayed no significant findings. Her symptoms seemed to be more anxiety at that time and she talked to social work. At that time she was supposed to follow up with her MANAGER OF SELECTION AND ASSESSMENT as well as a counselor and was placed on hydroxyzine. Patient states medication is not helping and she cannot see her MANAGER OF SELECTION AND ASSESSMENT at this time. She reports she was sleeping last night when she awoke with chest bracing and pain and then she became very anxious and nervous and with return of her symptoms presents for reevaluation [facility] <Dr. Alejandro Ventura DO - Last Filed: 01/10/21 07:31> [facility] Medical History Hepatitis C Home Medications vit,[id number] 1 ea PO DAILY 05/31/19 [History Last Taken 05/30/19 08:00 1] hydroxyzine pamoate 25 mg PO TID PRN PRN #30 cap 01/05/21 [Rx Last Taken Unknown] Allergy/AdvReac Type Severity Reaction Status Date / Time No Known Allergies Allergy Verified 01/05/21 09:54 Social History Smoking Status: Former smoker ROS <Dr. Alejandro Ventura DO - Last Filed: 01/10/21 07:31> ROS ED Constitutional Constitutional ED: Denies chills or fever(s) ENT ENT ED: Denies sore throat Cardiovascular Cardiovascular: Reports chest pain, palpitations and racing heartbeat Respiratory/Chest Respiratory/Chest: Denies cough or dyspnea Gastrointestinal Gastrointestinal: Reports nausea; Denies abdominal pain, diarrhea or vomiting Genitourinary Genitourinary ED: Denies dysuria or hematuria Musculoskeletal Musculoskeletal: Denies myalgias Integumentary Denies rash Neurologic Neurologic: Denies headache(s) Psychiatric Psychiatric: Reports anxiety; Denies suicidal ideation or suicidal thoughts Hematologic/Lymphatic Hematologic/Lymphatic: Denies easy bleeding or easy bruising EXAM <Dr. Alejandro Ventura, DO - Last Filed: 01/10/21 07:31> Physical Exam Const Vital Signs: 01/10/21 05:36 01/10/21 05:42 01/10/21 06:27 Temperature 96.5 F L Temperature Source Temporal Pulse Rate 103 H 139 H Respiratory Rate 24 H 20 H Respiratory Effort Normal Non-Labored Blood Pressure 126/88 H 136/92 H Blood Pressure Mean 100 106 Pulse Ox 98 97 Oxygen Delivery Method Room Air Room Air 01/10/21 06:33 01/10/21 06:41 01/10/21 08:24 Temperature Temperature Source Pulse Rate 122 H 118 H 117 H Respiratory Rate 16 18 17 Respiratory Effort Blood Pressure 142/84 H Blood Pressure Mean 103 Pulse Ox 96 97 Oxygen Delivery Method Room Air Room Air Room Air 01/10/21 11:48 Temperature Temperature Source Pulse Rate 128 H Respiratory Rate 17 Respiratory Effort Blood Pressure Blood Pressure Mean Pulse Ox Oxygen Delivery Method Room Air Positive well nourished and well developed General Appearance ED: well developed HEENT Reports moist mucous membranes Eyes PERRL and EOMs intact bilaterally Neck supple Neck Narrative: Thyroid is without nodule or goiter Resp normal respiratory effort and clear to auscultation bilaterally Cardio regular rate and regular rhythm GI GI Narrative: Abdomen is gravity with fundus consistent with reported gestational age. No voluntary guarding or rigidity no pulsatile mass Extremity normal to inspection Neuro oriented x3 and CN's II-XII intact bilaterally Sensorium / Orientation: alert Motor Exam: strength 5/5 throughout Psych Mood & Affect: anxious and tearful Skin no rashes or lesions noted <Dr. Angelica Kuhn, DO - Last Filed: 01/10/21 15:37> Physical Exam Const Vital Signs: 01/10/21 05:36 01/10/21 05:42 01/10/21 06:27 Temperature 96.5 F L Temperature Source Temporal Pulse Rate 103 H 139 H Respiratory Rate 24 H 20 H Respiratory Effort Normal Non-Labored Blood Pressure 126/88 H 136/92 H Blood Pressure Mean 100 106 Pulse Ox 98 97 Oxygen Delivery Method Room Air Room Air 01/10/21 06:33 01/10/21 06:41 01/10/21 08:24 Temperature Temperature Source Pulse Rate 122 H 118 H 117 H Respiratory Rate 16 18 17 Respiratory Effort Blood Pressure 142/84 H Blood Pressure Mean 103 Pulse Ox 96 97 Oxygen Delivery Method Room Air Room Air Room Air 01/10/21 11:48 Temperature Temperature Source Pulse Rate 128 H Respiratory Rate 17 Respiratory Effort Blood Pressure Blood Pressure Mean Pulse Ox Oxygen Delivery Method Room Air [facility] <Dr. Alejandro Ventura, DO - Last Filed: 01/10/21 07:31> [facility] Narrative Medical decision making narrative: Patient presented to the ER with stable vitals and was normal sinus rhythm on the monitor as well as her EKG. her symptoms do appear to be more anxiety/mental at this time. However with her report of palpitations and chest discomfort I did elect to perform repeat laboratory studies. They showed no clinically significant findings. The patient states that she does not feel safe and would like to talk to social work for possible psychiatric placement. Therefore this time patient will be kept in the ER until social work in capping machine operator and discuss a proper plan of action for her recurrent anxiety Lab Data Attestation: I reviewed the patient's lab results. Labs: Laboratory Results - last 24 hr 01/10/21 01/10/21 01/10/21 05:43 05:43 07:03 WBC 10.5 RBC 3.52 L Hgb 11.3 L Hct 32.3 L MCV 91.8 MCH 32.1 H MCHC 35.0 RDW Std Deviation 41.8 RDW Coeff of Hodan 12.7 Plt Count 270 MPV 9.2 Immature Gran % (Auto) 0.400 Neut % (Auto) 60.8 Lymph % (Auto) 30.7 [place] % (Auto) 5.6 Eos % (Auto) 2.2 Baso % (Auto) 0.3 Absolute Neuts (auto) 6.4 Absolute Lymphs (auto) 3.21 Nucleated RBC % 0 Sodium 139 Potassium 3.5 Chloride 106 Carbon Dioxide 25.0 Anion Gap 8 BUN 8 Creatinine 0.52 L Estim Creat Clear Calc 159.43 Est GFR (MDRD) Af Amer 182 Est GFR (MDRD) Non-Af 151 BUN/Creatinine Ratio 15.4 Glucose 80 Calcium 8.9 Magnesium 2.0 Troponin I High Sens 5 TSH 2.25 Urine Color Urine Clarity Urine pH Ur Specific [place] Urine Protein Urine Glucose (UA) Urine Ketones Urine Occult Blood Urine Nitrite Urine Bilirubin Urine Urobilinogen Ur Leukocyte Esterase Urine RBC Urine WBC Ur Squamous Epith Cells Urine Bacteria Urine Mucus Salicylates Urine Opiates Screen NEGATIVE Urine Methadone Screen NEGATIVE Acetaminophen Ur Barbiturates Screen NEGATIVE Ur Phencyclidine Scrn NEGATIVE Ur Amphetamines Screen NEGATIVE U Methamphetamin-MDMA NEGATIVE U Benzodiazepines Scrn NEGATIVE Urine Cocaine Screen NEGATIVE U Cannabinoids Screen NEGATIVE Ur Drug Screen Comment Ethyl Alcohol 01/10/21 01/10/21 01/10/21 07:03 07:30 07:30 WBC RBC Hgb Hct MCV MCH MCHC RDW Std Deviation RDW Coeff of Hodan Plt Count MPV Immature Gran % (Auto) Neut % (Auto) Lymph % (Auto) [place] % (Auto) Eos % (Auto) Baso % (Auto) Absolute Neuts (auto) Absolute Lymphs (auto) Nucleated RBC % Sodium Potassium Chloride Carbon Dioxide Anion Gap BUN Creatinine Estim Creat Clear Calc Est GFR (MDRD) Af Amer Est GFR (MDRD) Non-Af BUN/Creatinine Ratio Glucose Calcium Magnesium Troponin I High Sens TSH Urine Color Yellow Urine Clarity Clear Urine pH 6.5 Ur Specific Marana 1.015 Urine Protein Negative Urine Glucose (UA) Normal Urine Ketones 15 H Urine Occult Blood Negative Urine Nitrite Negative Urine Bilirubin Negative Urine Urobilinogen Normal Ur Leukocyte Esterase 500 H Urine RBC 0 SEEN Urine WBC 10-25 SEEN Ur Squamous Epith Cells 25-50 SEEN Urine Bacteria 3+ Urine Mucus 0 SEEN Salicylates < 1.7 L Urine Opiates Screen Urine Methadone Screen Acetaminophen < 2.0 L Ur Barbiturates Screen Ur Phencyclidine Scrn Ur Amphetamines Screen U Methamphetamin-MDMA U Benzodiazepines Scrn Urine Cocaine Screen U Cannabinoids Screen Ur Drug Screen Comment Ethyl Alcohol 5.0 <Dr. Angelica Kuhn, DO - Last Filed: 01/10/21 15:37> [facility] Lab Data Labs: Laboratory Results - last 24 hr 01/10/21 01/10/21 01/10/21 05:43 05:43 07:03 WBC 10.5 RBC 3.52 L Hgb 11.3 L Hct 32.3 L MCV 91.8 MCH 32.1 H MCHC 35.0 RDW Std Deviation 41.8 RDW Coeff of Hodan 12.7 Plt Count 270 MPV 9.2 Immature Gran % (Auto) 0.400 Neut % (Auto) 60.8 Lymph % (Auto) 30.7 [place] % (Auto) 5.6 Eos % (Auto) 2.2 Baso % (Auto) 0.3 Absolute Neuts (auto) 6.4 Absolute Lymphs (auto) 3.21 Nucleated RBC % 0 Sodium 139 Potassium 3.5 Chloride 106 Carbon Dioxide 25.0 Anion Gap 8 BUN 8 Creatinine 0.52 L Estim Creat Clear Calc 159.43 Est GFR (MDRD) Af Amer 182 Est GFR (MDRD) Non-Af 151 BUN/Creatinine Ratio 15.4 Glucose 80 Calcium 8.9 Magnesium 2.0 Troponin I High Sens 5 TSH 2.25 Urine Color Urine Clarity Urine pH Ur Specific [place] Urine Protein Urine Glucose (UA) Urine Ketones Urine Occult Blood Urine Nitrite Urine Bilirubin Urine Urobilinogen Ur Leukocyte Esterase Urine RBC Urine WBC Ur Squamous Epith Cells Urine Bacteria Urine Mucus Salicylates Urine Opiates Screen NEGATIVE Urine Methadone Screen NEGATIVE Acetaminophen Ur Barbiturates Screen NEGATIVE Ur Phencyclidine Scrn NEGATIVE Ur Amphetamines Screen NEGATIVE U Methamphetamin-MDMA NEGATIVE U Benzodiazepines Scrn NEGATIVE Urine Cocaine Screen NEGATIVE U Cannabinoids Screen NEGATIVE Ur Drug Screen Comment Ethyl Alcohol 01/10/21 01/10/21 01/10/21 07:03 07:30 07:30 WBC RBC Hgb Hct MCV MCH MCHC RDW Std Deviation RDW Coeff of Hodan Plt Count MPV Immature Gran % (Auto) Neut % (Auto) Lymph % (Auto) [place] % (Auto) Eos % (Auto) Baso % (Auto) Absolute Neuts (auto) Absolute Lymphs (auto) Nucleated RBC % Sodium Potassium Chloride Carbon Dioxide Anion Gap BUN Creatinine Estim Creat Clear Calc Est GFR (MDRD) Af Amer Est GFR (MDRD) Non-Af BUN/Creatinine Ratio Glucose Calcium Magnesium Troponin I High Sens TSH Urine Color Yellow Urine Clarity Clear Urine pH 6.5 Ur Specific Mar[place] 1.015 Urine Protein Negative Urine Glucose (UA) Normal Urine Ketones 15 H Urine Occult Blood Negative Urine Nitrite Negative Urine Bilirubin Negative Urine Urobilinogen Normal Ur Leukocyte Esterase 500 H Urine RBC 0 SEEN Urine WBC 10-25 SEEN Ur Squamous Epith Cells 25-50 SEEN Urine Bacteria 3+ Urine Mucus 0 SEEN Salicylates < 1.7 L Urine Opiates Screen Urine Methadone Screen Acetaminophen < 2.0 L Ur Barbiturates Screen Ur Phencyclidine Scrn Ur Amphetamines Screen U Methamphetamin-MDMA U Benzodiazepines Scrn Urine Cocaine Screen U Cannabinoids Screen Ur Drug Screen Comment Ethyl Alcohol 5.0 Discharge Plan Triage Chief Complaint: Chest Pain ED Provider: Godman,Angelica Dx/Rx/DC Orders Clinical Impression: Anxiety with depression Prescriptions: No Action vit,[id number] 1 EACH tablet 1 ea PO DAILY RF: 0 hydroxyzine pamoate 25 mg capsule 25 mg PO TID PRN PRN (Reason: Anxiety) Qty: 30 RF: 0 Primary Care Provider: Care Physician,No Primary Referrals: Care Physician,No Primary [Primary Care Provider] - Disposition Disposition: Psychiatric Hospital or Unit Discharge Location: [facility]
[2021-01-10 07:23] LABS: Bacteria 3+ /hpf (None Seen); Squamous Epithelial Cells - UA 25-50 SEEN /hpf (5-10); White Blood Cells 10-25 SEEN /hpf (0-5)
[2021-01-10 07:27] LABS: Amphetamine Urine VISTA NEGATIVE (<1000 ng/mL); Barbiturate Urine VISTA NEGATIVE (< 200 ng/mL); Benzodiazepine Urine VISTA NEGATIVE (< 200 ng/mL); Cocaine Urine VISTA NEGATIVE (< 300 ng/mL); Ecstacy Urine VISTA NEGATIVE (< 500 ng/mL); Methadone Urine VISTA NEGATIVE (< 300 ng/mL); PCP Urine VISTA NEGATIVE (< 25 ng/mL); THC Urine VISTA NEGATIVE (< 50 ng/mL); Vista UDS pH Range 6
[2021-01-10] MEDS: LORazepam 1 MG Tablet 2 MG PO (07:35)
--- NOTE | 2021-01-10 07:38 | ED.RN ---
Patient resting in bed visibly shaking. Patient walked to the bathroom without difficulty. This nurse encouraged the patient to take slow breaths and ativan given per order.
[2021-01-10 08:13] LABS: Acetaminophen (Tylenol) Level < 2.0 ug/mL (10.0-30.0); Salicylate < 1.7 mg/dL (2.8-20.0)
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
--- NOTE | 2021-01-10 13:44 | CM.ED ---
Social Work, Emergency Department Spoke with penny Brasher RN regarding COVID and EKG testing, as is usual for inpatient psychiatric referrals. RN will follow up with doctor on these orders. Called [facility], as is the closest to patient's residence in [facility]. [phone]. Spoke with Concepcion. There are beds to consider a referral. Confirmed fax and faxed referral packet to [phone]. As a backup and to expedite securing placement for patient, also made referral to [facility] in [place], . Spoke with Prerna who reports to fax referral to [phone]. Note, did not try [facility] (where patient was just hospitalized in the last month) due to patient's preference not to return, if there are other options available. Plan: Referrals pending to inpatient mental health. EKG and COVID pending. Will continue to follow and assist. -MARIAH Patino, INSURANCE RISK SURVEYOR
[2021-01-10] MEDS: hydrOXYzine PAM 25 MG Capsule 50 MG PO (13:59)
--- NOTE | 2021-01-10 14:44 | EKG12_ITS ---
Test Reason : [facility] Blood Pressure : / mmHG Vent. Rate : 125 BPM Atrial Rate : 125 BPM P-R Int : 160 ms QRS Dur : 090 ms QT Int : 294 ms P-R-T Axes : 036 107 -26 degrees QTc Int : 424 ms Sinus tachycardia T wave abnormality, consider inferior ischemia Abnormal ECG Confirmed by TRISTAN DESHPANDE, KIERAN ([id number]), make up editor DIANA RICHARD ([id number]) on 01/16/2021 6:32:38 AM Referred By: Confirmed By:KIERAN HUDSON MD
--- NOTE | 2021-01-10 15:53 | NURSING ---
CALLED [facility], TALKED TO MONALISA. ETA IS 2 PLUS HOURS
[2021-01-10] MEDS: LORazepam 1 MG Tablet PO (16:30)
--- NOTE | 2021-01-10 16:44 | CM.ED ---
Social Work - Emergency Department Received call from Concepcion at [facility]. Patient can be accepted pending COVID and EKG. Concepcion faxing over voluntary application for admission, for patient to sign. Met with patient to update. Reviewed application for voluntary admission and what this means, reviewing that cannot sign self out but can request discharge if decides that wants to leave once there. Patient expressed understanding. Patient signed form. Answered all of patient's questions. Offered to call supports and patient declined. Reports has talked to boyfriend and all at home are taken care of and okay. Updated nursing and Dr. Kuhn. Faxed outstanding referral information and application for admission to confirmed fax. Spoke with Annika storage battery charger at [facility]. Patient accepted by Dr. Duval and going to unit [address]. Updated [facility] ED nursing and provided report number ([phone]) and asked that [facility] be updated with transport time as well. Updated patient who expressed much appreciation for arrangements being made. [facility] never called this greeting card writer back regarding referral. Plan: Inpatient psych at [facility]. ED calling Physicians for transport. No other services requested or indicated. -MARIAH Patino, ACCREDITED PHARMACY TECHNICIAN
--- NOTE | 2021-01-10 16:55 | ED.RN ---
REPORT CALLED TO [facility].
== END 2021-01-10 19:43 ==
PROVIDERS: Emergency Medicine; Emergency Provider Emergency Medicine
DX: O99.342 Other mental disorders complicating pregnancy, second trimester (principal); F41.8 Other specified anxiety disorders; Z3A.25 25 weeks gestation of pregnancy; Z87.891 Personal history of nicotine dependence; Z79.899 Other long term (current) drug therapy
CPT/HCPCS: 80048; 80307; 80329; 81001; 82077; 83735; 84443; 84484; 85025; 87086; 87088; 87426; 93005; 96374; 99285; A4216; G0480